=== PATIENT | female | born 1970 | race Caucasian/White ===

== ENCOUNTER → 2016-10-04 | Outpatient (CLI) | payer OTHER ==
[~2016-10-04] VITALS: Ht 162.6 cm; Wt 56.7 kg
[~2016-10-04] MED LIST: CENTURY ULTIMA1 EAC3 PO; CYTOMEL5 MCG PO; ESTRACE2 MG PO; LEVO-T25 MCG PO; MELATIN3 MG PO; NEXIUM 24HR20 MG PO; VITAMIN D31000 UNIT PO
== END | disposition home or self-care (01) ==
LOC: AMB 11:00
DX: K21.9 Gastro-esophageal reflux disease without esophagitis (principal); K31.7 Polyp of stomach and duodenum; R19.5 Other fecal abnormalities; R19.7 Diarrhea, unspecified; E03.9 Hypothyroidism, unspecified; N94.89 Other specified conditions associated with female genital organs and menstrual cycle; N80.9 Endometriosis, unspecified; M50.20 Other cervical disc displacement, unspecified cervical region
CPT/HCPCS: 88305; 88342 TC; B4087; J2250; J2405; J3010